=== PATIENT | female | born 1940 | race African-American/Black ===

== ENCOUNTER 2017-08-09 11:19 | Emergency (ER) | payer MEDICARE ==
[2017-08-09 11:32] VITALS: BP 128/63
[2017-08-09] MEDS ORDERED: guaiFENesin LIQ* 100 MG/5 ML UDC PO ONE (12:16)
--- NOTE | 2017-08-09 12:18 | RAD ---
Indication: Cough. 2 views of the chest including dual energy PA views are reviewed. No mediastinal shift is noted. Heart is of normal size and configuration. No prior study is available for comparison. There is some increased density in the right medial lung base at the right cardiophrenic border which may represent infiltrate or atelectasis. Left lung field is clear. Follow-up exam is suggested. IMPRESSION: Increased density in the right lung base at the cardiophrenic border may represent atelectasis, pneumonia. Follow-up exam to ensure clearing is suggested to exclude a mass.
--- NOTE | 2017-08-09 13:42 | UC ---
Frank Quinteros Julia, scribed for Kulwant Armas MD on 08/09/17 at 1152 . General HPI - HPI Summary HPI Summary: This patient is a 77 year old F [place] [facility] [place] chief complaint of a productive cough for more than seven days. Patient has been taking Robitussin and a full course of Zithromycin, however symptoms have worsened. Patient denies fever and chills. Patient has no other complaints. - History of Current Complaint Chief Complaint: UCGeneralIllness Stated Complaint: COUGH Time Seen by Provider: 08/09/17 11:36 Hx Obtained From: Patient Onset/Duration: Gradual Onset, Lasting Weeks Onset Severity: Mild Current Severity: Moderate Pain Intensity: 0 Character: productive cough Alleviating: nothing - Allergy/Home Medications Allergies/Adverse Reactions: Allergies Allergy/AdvReac Type Severity Reaction Status Date / Time Penicillins Allergy Unknown Verified 08/09/17 11:33 Reaction Details PMH/Surg Hx/FS Hx/Imm Hx Previously Healthy: Yes - Surgical History Surgical History: Yes Surgery Procedure, Year, and Place: 2005- CHOLECYSTECTOMY; [place] [facility] [place] RIGHT ROTATOR CUFF REPAIR- APPROX [place] [facility] [place] - Family History Known Family History: Positive: Hypertension - Social History Alcohol Use: Occasionally Alcohol Amount: 1-2 GLASSES WINE WEEKLY Substance Use Type: None Substance Use Comment - Amount & Last Used: LORAZEPAM NEEDED FOR SLEEP Smoking Status (MU): Never Smoked Tobacco Review of Systems Constitutional: Negative Respiratory: Cough All Other Systems Reviewed And Are Negative: Yes Physical Exam - Summary Physical Exam Summary: VITAL SIGNS: Reviewed. GENERAL: Patient is a well developed and nourished female who is lying comfortable in the stretcher. Patient is not in any acute respiratory distress. HEAD AND FACE: Normocephalic EYES: PERRLA, EOMI x 2. EARS: Hearing grossly intact. MOUTH: Oropharynx within normal limits. NECK: Supple, trachea is midline, no adenopathy, no JVD, no carotid bruit. CHEST: Symmetric, no tenderness at palpation LUNGS: Coarse breath sounds bilaterally CVS: Regular rate and rhythm, S1 and S2 present, no murmurs or gallops appreciated. ABDOMEN: Soft, non-tender. Bowel sounds are normal. No abdominal abnormal pulsations. EXTREMITIES: Full ROM in all major joints, no edema, no cyanosis or clubbing. NEURO: Alert and oriented x 3. No acute neurological deficits. Speech is normal and follows commands. SKIN: Dry and warm Triage Information Reviewed: Yes Vital Signs: Initial Vital Signs Temp 98.6 F 08/09/17 11:29 Pulse 84 08/09/17 11:29 Resp 16 08/09/17 11:29 BP 128/63 08/09/17 11:29 Pulse Ox 100 08/09/17 11:29 Vital Signs Reviewed: Yes Diagnostics - Radiology CXR Radiology Interpretation Completed By: Radiologist - Increased density in the right lung base at the cardiophrenic border may represent atelectasis, pneumonia. Follow-up exam to ensure clearing is suggested to exclude a mass. Dr. Armas has reviewed this report. Course/Dx - Course Course Of Treatment: This patient is a 77 year old F [place] [facility] [place] a chief complaint of a productive cough for more than seven days. Patient has been taking Robitussin and a full course of Zithromycin, however symptoms have worsened. Patient denies fever and chills. Patient has no other complaints. CXR is indicative of PNA. Patient is given Robitussin while at Urgent Care. Patient is given a prescription for Antitussives for chough and Levaquin for PNA. I discussed all the findings and test results with the patient. Patient was instructed to return to the urgent care or go to ER immediately if any of the symptoms return or worsens. Plan of care was discussed with the patient, and patient understands and agrees. All questions were answered to patient satisfaction. There were no further complaints or concerns. Patient will follow up with her PCP in a few days. - Differential Dx - Multi-Symptom Provider Diagnoses: pneumonia Discharge - Sign-Out/Discharge Documenting (check all that apply): Discharge/Admit/Transfer - Discharge Plan Condition: Stable Disposition: HOME Prescriptions: Levofloxacin TAB* [Levaquin TAB*] 750 mg PO DAILY #10 tab Promethazine/Phenyleph/Codeine [Promethazine Vc/Codeine] 5 ml PO Q6H PRN #120 ml MDD 20 ml PRN Reason: Cough Patient Education Materials: Pharyngitis (ED), Chronic Cough (ED) Referrals: Azul Gauthier MD [Primary Care Provider] - 3 Days Additional Instructions: Take medications as instructed Increase your fluid intake Return to the if symptoms worsen The documentation as recorded by the scribeFrank Julia accurately reflects the service I personally performed and the decisions made by me, Kulwant Armas MD.
== END 2017-08-09 12:35 | disposition home or self-care (01) ==
LOC: UCEAST 11:19
DX: J18.9 Pneumonia, unspecified organism (principal); Z88.0 Allergy status to penicillin
CPT/HCPCS: 71046; 99212; A9270-GY; G0463

== ENCOUNTER 2021-11-16 06:36 | Inpatient (IN) ==
[~2021-11-16 06:36] MED LIST: Buffered Lidocaine 1% SYRIN 1 ml INTRADERM ONE; Famotidine IV 10 MG/ML 2 ml VIAL (20 mg) IV ONE; Lactated Ringers 1000 ml BAG 1,000 ML IV SCH
[2021-11-16] MEDS ORDERED: Clindamycin 900 MG/D5W BAG 900 MG/50 ML BAG IVPB ONE (06:57)
[2021-11-16] MEDS ORDERED: ROPIVACAINE 5 MG/ML 30 ML BTL (0.5%) ONE ×2 (07:09→07:54)
[2021-11-16] MEDS ORDERED: Famotidine IV 10 MG/ML 2 ml VIAL (20 mg) ONE (07:39)
[2021-11-16] MEDS ORDERED: Midazolam 2 mg/2 ml VIAL 1 mg/ml 2 ml VIAL (2 mg) ONE (07:59)
[2021-11-16] MEDS ORDERED: fentaNYL 100 mcg/2 ml 50 MCG/ML VIAL ONE (07:59)
[2021-11-16] MEDS ORDERED: Lidocaine 2% PF 5 ML VIAL ONE (08:06)
[2021-11-16] MEDS ORDERED: Ketamine HCL 50 mg/ml 10 ml VIAL (500 MG) ONE (08:11)
[2021-11-16] MEDS ORDERED: Bupivacaine 0.5% SDV PF 30ML VIAL ONE (08:37)
[2021-11-16] MEDS ORDERED: Ondansetron 4 mg VIAL 2 MG/ML 2 ml VIAL IV PRN ×2 (09:09→10:08)
[2021-11-16] MEDS ORDERED: Morphine 2 MG/ML SYRINGE IV PRN (09:09)
[2021-11-16] MEDS ORDERED: Magnesium Hydroxide LIQ 30 ML UDC PO PRN (09:09)
[2021-11-16] MEDS ORDERED: Lactulose 30 ml UDC PO PRN (09:09)
[2021-11-16] MEDS ORDERED: Ondansetron ODT 4 mg TAB 4 MG TAB PO PRN (09:09)
[2021-11-16] MEDS ORDERED: Ondansetron 4 mg VIAL 2 MG/ML 2 ml VIAL ONE (09:14)
[2021-11-16] MEDS ORDERED: Acetaminophen IV 1 GM/100ML 1,000 MG/100 ML BAG IV ONE (09:31)
[2021-11-16] MEDS ORDERED: Lactated Ringers 1000 ml BAG 1,000 ML IV SCH (10:00)
[2021-11-16] MEDS ORDERED: Clindamycin 600 MG/D5W BAG 600 MG/50 ML BAG IV SCH (10:00)
[2021-11-16] MEDS ORDERED: fentaNYL 100 mcg/2 ml 50 MCG/ML VIAL IV PRN (10:08)
[2021-11-16] MEDS ORDERED: Naloxone 0.4 mg VIAL 0.4 mg/ml 1 ml VIAL IV PRN (10:08)
[2021-11-16] MEDS: Clindamycin 600 MG/D5W BAG 600 MG/50 ML BAG IV SCH (17:04)
[2021-11-16] MEDS: Magnesium Hydroxide LIQ 30 ML UDC PO SCH (21:44)
[2021-11-17] MEDS: Clindamycin 600 MG/D5W BAG 600 MG/50 ML BAG IV SCH ×2 (01:00→08:59)
[2021-11-17 05:23] LABS: Hematocrit 31 % (35-47); Hemoglobin 10.2 g/dL (12.0-16.0); Mean Platelet Volume 8.6 fL (7.4-10.4); Platelet Count 207 10^3/uL (150-450)
[2021-11-17 05:42] LABS: Calcium 8.8 mg/dL (8.6-10.3); Potassium 4.4 mmol/L (3.5-5.0); eGFR CKD-EPI 80.9 (>60)
[2021-11-17] MEDS: Magnesium Hydroxide LIQ 30 ML UDC PO SCH ×2 (07:46→20:41)
[2021-11-17] MEDS: Vitamin THERAPEUTIC TAB PO SCH (09:00)
[2021-11-18 05:01] LABS: Hematocrit 28 % (35-47); Hemoglobin 9.2 g/dL (12.0-16.0); Mean Platelet Volume 8.3 fL (7.4-10.4); Platelet Count 206 10^3/uL (150-450)
[2021-11-18 08:32] VITALS: BP 129/75
[2021-11-18] MEDS: Vitamin THERAPEUTIC TAB PO SCH (08:50)
[2021-11-18] MEDS: Magnesium Hydroxide LIQ 30 ML UDC PO SCH (08:50)
== END 2021-11-18 12:17 | disposition home or self-care (01) | DRG 470 ==
LOC: AA 06:36 → SSU 09:09
PROVIDERS: ADMIT Orthopaedic Surgery Adult Reconstructive Orthopaedic Surgery; ATTEND Orthopaedic Surgery Adult Reconstructive Orthopaedic Surgery